=== PATIENT | female | born 1995 | race Caucasian/White ===

== ENCOUNTER 2021-07-09 19:48 | Emergency (ER) | payer BC ==
[~2021-07-09] VITALS: Ht 167.6 cm; Wt 70.5 kg
[2021-07-09 20:48] VITALS: BP 128/64; PULSE 84; TEMP 98.2
== END 2021-07-09 21:02 | disposition home or self-care (01) ==
LOC: COL.ER 19:48
DX: R22.31 Localized swelling, mass and lump, right upper limb (principal)